=== PATIENT | male | born 1975 | race Caucasian/White ===

== ENCOUNTER 2021-08-17 19:40 | Emergency (ER) | payer BC ==
[~2021-08-17] VITALS: Ht 177.8 cm; Wt 108.9 kg
[2021-08-17 19:50] VITALS: BP_SYST 168
--- NOTE | 2021-08-17 19:59 | NUR ---
Patient to ER bed 5 to gown for evaluation. Side rails up.
[2021-08-17] MEDS ORDERED: HYDROcodone/ACETAMIN 10-325 MG TAB PO ONE (20:00)
--- NOTE | 2021-08-17 20:50 | NUR ---
Dr. Perez at bedside assessing patient.
[2021-08-17] MEDS ORDERED: KETOROLAC TROMETHAMINE 15 MG VIAL IVP ONE (21:00)
[2021-08-17 21:23] LABS: BILIRUBIN,URINE NEGATIVE (NEGATIVE); BLOOD, URINE 3+ (NEGATIVE); COLOR,URINE YELLOW (YELLOW); GLUCOSE,URINE NEGATIVE (NEGATIVE); KETONES,URINE NEGATIVE (NEGATIVE); LEUKOCYTE ESTERASE ,URINE NEGATIVE (NEGATIVE); NITRITE, URINE NEGATIVE (NEGATIVE); PROTEIN URINE TRACE (NEGATIVE); UROBILINOGEN,URINE 0.2 (0.2-1.0)
[2021-08-17 21:25] LABS: BASOPHILS % (AUTO) 0.4 % (0.0-2.0); EOSINOPHILS % (AUTO) 0.3 % (0.0-4.0); HEMATOCRIT 44.7 % (36-54); HEMOGLOBIN 15.1 g/dL (14.0-18.0); LYMPHOCYTES # (AUTO) 1.2 K/uL (1.0-5.5); LYMPHOCYTES % (AUTO) 12.9 % (20.5-51.5); MEAN CORPUSCULAR HEMOGLOBIN 29 pg (27-31); MEAN CORPUSCULAR HGB CONC 34 % (32-36); MEAN CORPUSCULAR VOLUME 85 fL (79.0-98.0); MONOCYTES # (AUTO) 0.6 K/uL (0.0-1.0); MONOCYTES % (AUTO) 5.9 % (1.7-9.3); NEUTROPHILS # (AUTO) 7.5 K/uL (1.8-7.7); NEUTROPHILS % (AUTO) 80.5 % (40.0-70.0); PLATELET COUNT (AUTO) 269 K/uL (130-430); RED BLOOD CELL COUNT(AUTO) 5.28 MIL/uL (4.2-6.2); RED CELL DISTRIBUTION WIDTH 14.2 % (9.0-15.0); WHITE BLOOD COUNT (AUTO) 9.3 K/uL (4.8-10.8)
[2021-08-17 21:47] LABS: CALCIUM 9.4 mg/dL (8.4-11.0); CREATININE 1.1 mg/dL (0.55-1.30); POTASSIUM 4.1 mmol/L (3.5-5.1)
[2021-08-17 21:52] LABS: ALBUMIN 4.4 g/dL (3.4-4.8); TOTAL BILIRUBIN 0.7 mg/dL (0.0-1.0)
[2021-08-17 21:53] LABS: CLARITY/URINE SLIGHTLY HAZY (CLEAR)
[2021-08-17 22:04] LABS: RBC,URINE 20-50 /HPF (0-3)
[2021-08-17 22:05] LABS: BACTERIA,URINE FEW /HPF (None Seen); MUCUS,URINE None Seen /LPF (None Seen); WBC,URINE 0-3 /HPF (0-3)
[2021-08-17] MEDS ORDERED: SIME125C PO ×2 (23:11→23:44)
[2021-08-17] MEDS ORDERED: IBUP-1969 PO ×2 (23:11→23:44)
[2021-08-17 23:41] VITALS: BP_SYST 142
== END 2021-08-17 23:41 | disposition home or self-care (01) ==
LOC: SED 19:40
DX: R31.29 Other microscopic hematuria (principal); R10.9 Unspecified abdominal pain; I10 Essential (primary) hypertension; Z79.899 Other long term (current) drug therapy
CPT/HCPCS: 36415; 74176; 76376; 80053; 81000; 85025; 96374; 99284; J1885